=== PATIENT | female | born 1980 | race Hispanic/Latino ===

== ENCOUNTER 2017-11-19 11:31 | Inpatient (IN) | payer OTHER ==
[~2017-11-19] VITALS: Ht 142.2 cm; Wt 83.8 kg
[2017-11-19] MEDS ORDERED: IPRATROPIUM/ALBUTEROL SULFATE 3 ML SOLUTION IH ONE ×2 (12:21→16:59)
[2017-11-19] MEDS ORDERED: DEXTROSE 50%-WATER 50 ML DISP.SYRIN IV PRN (12:30)
[2017-11-19] MEDS ORDERED: GLUCAGON 1MG KIT 1 MG ML IM PRN (12:30)
[2017-11-19] MEDS ORDERED: POTASSIUM CHLORIDE 20 MEQ ERTAB PO PRN (12:30)
[2017-11-19] MEDS ORDERED: LIDOCAINE HCL-MPF 1% 2ML VIAL IJ PRN (12:30)
[2017-11-19] MEDS ORDERED: IPRATROPIUM/ALBUTEROL SULFATE 3 ML SOLUTION IH PRN (12:30)
[2017-11-19] MEDS ORDERED: POTASSIUM CHLORIDE 20MEQ/100ML 100 ML IV PRN (12:30)
[2017-11-19] MEDS ORDERED: CLONIDINE HCL 0.1 MG TABLET PO PRN (12:30)
[2017-11-19] MEDS ORDERED: POTASSIUM CHLORIDE 10% ELIXIR 20 MEQ/15 ML UDCUP PO PRN (12:30)
[2017-11-19] MEDS ORDERED: NITROGLYCERIN 0.4 MG SL TAB SL PRN (12:30)
[2017-11-19] MEDS ORDERED: SODIUM CHLORIDE 0.9% 10 ML VIAL IVP PRN (12:30)
[2017-11-19] MEDS: CEFTRIAXONE SODIUM 1 GM IVP SCH (12:30)
[2017-11-19] MEDS ORDERED: ZOLPIDEM TARTRATE 5 MG TAB PO PRN (12:30)
[2017-11-19] MEDS ORDERED: LACTULOSE 20 GM/30 ML UDCUP PO PRN (12:30)
[2017-11-19] MEDS ORDERED: MAG HYDROX/AL HYDROX/SIMETH ES 30 ML SUSP UDCUP PO PRN (12:30)
[2017-11-19] MEDS ORDERED: GUAIFENESIN-DM 200/20 MG 10 ML PO PRN (12:30)
[2017-11-19] MEDS ORDERED: ONDANSETRON HCL 4 MG/2 ML VIAL IVP PRN (12:30)
[2017-11-19] MEDS ORDERED: DIPHENHYDRAMINE HCL 25 MG CAPSULE PO PRN (12:30)
[2017-11-19 12:47] LABS: BASOPHILS % (AUTO) 1.1 % (0.0-5.0); EOSINOPHILS % (AUTO) 5.4 % (0.0-8.0); HEMATOCRIT 39.2 % (36-48); MEAN CORPUSCULAR HEMOGLOBIN 27.3 pg (27.0-33.0); MEAN CORPUSCULAR HGB CONC 33.2 g/dL (32.0-36.0); MEAN CORPUSCULAR VOLUME 82.1 fL (79-99); MONOCYTES % (AUTO) 6.3 % (3.0-13.0); NEUTROPHILS % (AUTO) 61.2 % (40.0-77.0); NUCLEATED RED BLOOD CELLS 0.1 % (0.0-0.19); PLATELET COUNT (AUTO) 270 K/uL (130-400); RED BLOOD CELL COUNT(AUTO) 4.78 MIL/uL (4.00-5.50); WHITE BLOOD COUNT (AUTO) 10.1 K/uL (4.8-10.8)
[2017-11-19 13:01] LABS: CREATININE 0.9 mg/dL (0.5-1.5)
[2017-11-19 13:12] LABS: ALBUMIN 3.6 g/dL (3.5-5.0); BILIRUBIN,TOTAL 0.2 mg/dL (0.2-1.0); TOTAL PROTEIN, SERUM 7.5 g/dL (6.0-8.3)
[2017-11-19 13:49] LABS: ERYTHROCYTE SEDIMENTATION RATE 31 MM/HR (0-20)
[2017-11-19] MEDS ORDERED: METHYLPREDNISOLONE SOD SUCC 125MG/2ML VIAL ONE (15:06)
[2017-11-19] MEDS ORDERED: CEFTRIAXONE SODIUM 1 GM ONE (15:06)
[2017-11-19] MEDS: IPRATROPIUM/ALBUTEROL SULFATE 3 ML SOLUTION IH SCH (17:07)
[2017-11-19 18:45] VITALS: BP 135/91
[2017-11-19] MEDS: FAMOTIDINE 20MG TAB 20 MG TAB PO SCH (21:40)
[2017-11-19] MEDS: INSULIN R PO SSI SQ SCH (21:43)
[2017-11-19] MEDS: AZITHROMYCIN 500MG+NS 250ML 250 ML IV SCH (21:58)
[2017-11-19] MEDS: METHYLPREDNISOLONE SOD SUCC 125MG/2ML VIAL IVP SCH (21:59)
[2017-11-20] VITALS (7 sets, daily range): BP systolic 108–136; BP diastolic 66–78
[2017-11-20] MEDS: IPRATROPIUM/ALBUTEROL SULFATE 3 ML SOLUTION IH SCH ×5 (00:04→22:43)
[2017-11-20] MEDS ORDERED: ALBU6.7H IH (03:58)
[2017-11-20] MEDS ORDERED: BUDE10.2 IH (03:58)
[2017-11-20] MEDS ORDERED: PRED20TA3 PO (03:58)
[2017-11-20] MEDS ORDERED: BUDE1AMP2 IH (03:58)
[2017-11-20] MEDS ORDERED: CETI10CA5 PO (03:58)
[2017-11-20] MEDS ORDERED: ALBU2.5V2 IH (03:58)
[2017-11-20] MEDS: METHYLPREDNISOLONE SOD SUCC 125MG/2ML VIAL IVP SCH ×3 (05:54→21:04)
[2017-11-20] MEDS ORDERED: ALBUTEROL SULFATE 0.083% 2.5 MG/3 ML INH IH ONE ×4 (06:19→06:20)
[2017-11-20] MEDS: INSULIN R PO SSI SQ SCH ×5 (07:30→21:15)
[2017-11-20] MEDS: PANTOPRAZOLE SODIUM 40 MG TABLET.DR PO SCH (10:39)
[2017-11-20] MEDS: FAMOTIDINE 20MG TAB 20 MG TAB PO SCH ×2 (10:39→21:04)
[2017-11-20] MEDS: ENOXAPARIN SODIUM 40 MG/0.4 ML SYRINGE SQ SCH (10:40)
[2017-11-20] MEDS: CEFTRIAXONE SODIUM 1 GM IVP SCH (13:40)
[2017-11-20] MEDS: AZITHROMYCIN 500MG+NS 250ML 250 ML IV SCH (13:40)
[2017-11-20] MEDS ORDERED: MAGNESIUM 2GM PREMIX 50ML 50 ML IV SCH (14:30)
[2017-11-20] MEDS ORDERED: IPRATROPIUM/ALBUTEROL SULFATE 3 ML SOLUTION IH SCH ×2 (16:00→17:28)
[2017-11-20] MEDS: MONTELUKAST SODIUM 10 MG TAB PO SCH (16:17)
[2017-11-20] MEDS: ACETAMINOPHEN 325 MG TAB PO PRN ×2 (16:19→21:20)
[2017-11-21] MEDS: IPRATROPIUM/ALBUTEROL SULFATE 3 ML SOLUTION IH SCH ×6 (01:49→21:29)
[2017-11-21 04:00] VITALS: BP 122/72
[2017-11-21] MEDS: METHYLPREDNISOLONE SOD SUCC 125MG/2ML VIAL IVP SCH ×3 (06:14→23:58)
[2017-11-21] MEDS: INSULIN R PO SSI SQ SCH ×4 (06:15→22:37)
[2017-11-21 07:38] VITALS: BP 132/78
[2017-11-21] MEDS: ENOXAPARIN SODIUM 40 MG/0.4 ML SYRINGE SQ SCH (07:49)
[2017-11-21] MEDS: FAMOTIDINE 20MG TAB 20 MG TAB PO SCH ×2 (07:50→22:31)
[2017-11-21] MEDS: MONTELUKAST SODIUM 10 MG TAB PO SCH (07:50)
[2017-11-21] MEDS: PANTOPRAZOLE SODIUM 40 MG TABLET.DR PO SCH (07:50)
[2017-11-21] MEDS: ACETAMINOPHEN 325 MG TAB PO PRN (08:00)
[2017-11-21 11:38] VITALS: BP 120/75
[2017-11-21] MEDS ORDERED: DILTIAZEM HCL 120 MG CAP.SR.24H PO ONE (13:15)
[2017-11-21] MEDS: AZITHROMYCIN 500MG+NS 250ML 250 ML IV SCH (13:18)
[2017-11-21] MEDS: CEFTRIAXONE SODIUM 1 GM IVP SCH (13:18)
[2017-11-21 15:38] VITALS: BP 138/67
[2017-11-21 19:00] VITALS: BP 126/77
[2017-11-21] MEDS: LORAZEPAM 0.5 MG TABLET PO PRN (22:31)
[2017-11-21 23:00] VITALS: BP 127/77
[2017-11-22] MEDS: IPRATROPIUM/ALBUTEROL SULFATE 3 ML SOLUTION IH SCH ×6 (02:26→22:02)
[2017-11-22 03:00] VITALS: BP 115/58
[2017-11-22] MEDS: ACETAMINOPHEN 325 MG TAB PO PRN (06:47)
[2017-11-22] MEDS: INSULIN R PO SSI SQ SCH ×4 (06:49→21:10)
[2017-11-22 07:33] VITALS: BP 118/72
[2017-11-22] MEDS: FAMOTIDINE 20MG TAB 20 MG TAB PO SCH ×2 (09:00→21:12)
[2017-11-22] MEDS: MONTELUKAST SODIUM 10 MG TAB PO SCH (09:34)
[2017-11-22] MEDS: ENOXAPARIN SODIUM 40 MG/0.4 ML SYRINGE SQ SCH (09:34)
[2017-11-22] MEDS: PANTOPRAZOLE SODIUM 40 MG TABLET.DR PO SCH (09:35)
[2017-11-22] MEDS: DILTIAZEM HCL 120 MG CAP.SR.24H PO SCH (09:36)
[2017-11-22] MEDS: METHYLPREDNISOLONE SOD SUCC 125MG/2ML VIAL IVP SCH ×2 (09:36→21:00)
[2017-11-22] MEDS: CEFTRIAXONE SODIUM 1 GM IVP SCH (11:28)
[2017-11-22] MEDS: AZITHROMYCIN 500MG+NS 250ML 250 ML IV SCH (11:29)
[2017-11-22 11:38] VITALS: BP 114/67
[2017-11-22 15:48] VITALS: BP 129/65
[2017-11-22 19:00] VITALS: BP 125/76
[2017-11-22] MEDS ORDERED: METHYLPREDNISOLONE SOD SUCC 40MG/ML 1ML ONE (20:37)
[2017-11-22] MEDS: LORAZEPAM 0.5 MG TABLET PO PRN (21:12)
[2017-11-22 23:00] VITALS: BP 118/69
[2017-11-23] MEDS: IPRATROPIUM/ALBUTEROL SULFATE 3 ML SOLUTION IH SCH ×6 (01:25→21:04)
[2017-11-23 03:00] VITALS: BP 110/57
[2017-11-23] MEDS: INSULIN R PO SSI SQ SCH ×4 (06:36→22:44)
[2017-11-23 07:25] VITALS: BP 134/78
[2017-11-23] MEDS: METHYLPREDNISOLONE SOD SUCC 40MG/ML 1ML IVP SCH ×2 (09:43→22:46)
[2017-11-23] MEDS: PANTOPRAZOLE SODIUM 40 MG TABLET.DR PO SCH (09:43)
[2017-11-23] MEDS: MONTELUKAST SODIUM 10 MG TAB PO SCH (09:43)
[2017-11-23] MEDS: ENOXAPARIN SODIUM 40 MG/0.4 ML SYRINGE SQ SCH (09:43)
[2017-11-23] MEDS: DILTIAZEM HCL 120 MG CAP.SR.24H PO SCH (09:43)
[2017-11-23] MEDS: FAMOTIDINE 20MG TAB 20 MG TAB PO SCH ×2 (09:43→22:46)
[2017-11-23 10:50] VITALS: BP 122/78
[2017-11-23] MEDS: CEFTRIAXONE SODIUM 1 GM IVP SCH (11:50)
[2017-11-23] MEDS: AZITHROMYCIN 500MG+NS 250ML 250 ML IV SCH (13:52)
[2017-11-23 16:11] VITALS: BP 122/71
[2017-11-23] MEDS: LORAZEPAM 0.5 MG TABLET PO PRN (18:11)
[2017-11-23 18:34] LABS: ABG BASE EXCESS -0.2 mmol/L (-2.0-3.0); ABG HCO3 23.2 mmol/L (21.0-28.0); ABG OXYGEN SATURATION 95.5 % (95.0-99.0); ABG PCO2 34 mmHg (32-45)
[2017-11-23 19:00] VITALS: BP 131/75
[2017-11-23 23:00] VITALS: BP 131/76
[2017-11-24] MEDS: IPRATROPIUM/ALBUTEROL SULFATE 3 ML SOLUTION IH SCH ×4 (02:12→11:09)
[2017-11-24 03:00] VITALS: BP 114/60
[2017-11-24] MEDS: INSULIN R PO SSI SQ SCH ×2 (06:44→12:15)
[2017-11-24 07:51] VITALS: BP 113/64
[2017-11-24] MEDS: MONTELUKAST SODIUM 10 MG TAB PO SCH (09:18)
[2017-11-24] MEDS: FAMOTIDINE 20MG TAB 20 MG TAB PO SCH (09:18)
[2017-11-24] MEDS: METHYLPREDNISOLONE SOD SUCC 40MG/ML 1ML IVP SCH (09:18)
[2017-11-24] MEDS: PANTOPRAZOLE SODIUM 40 MG TABLET.DR PO SCH (09:18)
[2017-11-24] MEDS: ENOXAPARIN SODIUM 40 MG/0.4 ML SYRINGE SQ SCH (09:19)
[2017-11-24 09:38] LABS: ALBUMIN 3.1 g/dL (3.5-5.0); BILIRUBIN,TOTAL 0.2 mg/dL (0.2-1.0); CREATININE 0.8 mg/dL (0.5-1.5); POTASSIUM 3.9 mmol/L (3.5-5.1); TOTAL PROTEIN, SERUM 6.3 g/dL (6.0-8.3)
[2017-11-24] MEDS ORDERED: IOHEXOL 350 MG/ML 100ML INFUS..BTL IV ONE (10:36)
[2017-11-24 11:47] VITALS: BP 128/44
[2017-11-24] MEDS: DILTIAZEM HCL 120 MG CAP.SR.24H PO SCH (12:18)
[2017-11-24] MEDS: AZITHROMYCIN 500MG+NS 250ML 250 ML IV SCH (12:19)
[2017-11-24] MEDS: CEFTRIAXONE SODIUM 1 GM IVP SCH (12:19)
[2017-11-24 16:00] VITALS: BP 130/76
== END 2017-11-24 18:21 | disposition home or self-care (01) | DRG 189 ==
LOC: EDH 11:31 → OBSVTOIN 12:29 → EDHIP 12:29 → 3BH 18:54
PROVIDERS: ADMIT Internal Medicine; ATTEND Internal Medicine
DX: J96.01 Acute respiratory failure with hypoxia (principal); J45.901 Unspecified asthma with (acute) exacerbation; E24.2 Drug-induced Cushing's syndrome; Z68.41 Body mass index [BMI] 40.0-44.9, adult; I10 Essential (primary) hypertension; F41.9 Anxiety disorder, unspecified; E66.9 Obesity, unspecified; E66.01 Morbid (severe) obesity due to excess calories; K21.9 Gastro-esophageal reflux disease without esophagitis; E09.9 Drug or chemical induced diabetes mellitus without complications; T38.0X5A Adverse effect of glucocorticoids and synthetic analogues, initial encounter; R00.2 Palpitations; Z71.3 Dietary counseling and surveillance; Z79.52 Long term (current) use of systemic steroids; Z28.21 Immunization not carried out because of patient refusal
CPT/HCPCS: 36415; 36600; 71046; 71275; 72070; 72100; 80053; 82803; 82948; 83880; 85025; 85651; 93306; 94010; 94640; 94644; 94664; A4218; J0456; J0696; J1650; J1815; J2920; J2930; J3475; Q9967